=== PATIENT | male | born 1945 | race Caucasian/White ===

== ENCOUNTER 2017-11-26 14:21 | Emergency (ER) | payer OTHER ==
[~2017-11-26] VITALS: Ht 177.8 cm; Wt 92.4 kg
[2017-11-26 14:22] VITALS: BP 170/82; PULSE 88; RESP 18; TEMP 97.9; O2SAT 98
[2017-11-26] MEDS ORDERED: bp meds (14:55)
[2017-11-26] MEDS ORDERED: ASPI-516 CHEW (14:55)
[2017-11-26] MEDS ORDERED: OMEP20TA93 PO (14:55)
--- NOTE | 2017-11-26 16:08 | PD ---
HPI Chief Complaint: Laceration/Skin Injury Time Seen by Provider: 15:33 Travel History International Travel<30 days: No Contact w/Intl Traveler<30days: No Traveled to known affect area: No History of Present Illness HPI This is a 72-year-old male here with a superficial laceration to right wrist volar aspect caused by a razor knife. Bleeding is well-controlled. He has normal sensation and full range of motion of the wrist and hand. Symptom severity is mild. No aggravating or alleviating factors. PFSH Past Medical History Diminished Hearing: No GERD: Yes Hypertension: Yes Tetanus Vaccination: Unknown Influenza Vaccination: Yes ?: Not Past Surgical History Genitourinary Surgery: Yes (bladder cancer) Neurologic Surgery: Yes (right shoulder, left elbow, right elbow) Social History Alcohol Use: No Tobacco Use: No Allergies-Medications (Allergen,Severity, Reaction): Coded Allergies: No Known Allergies (Verified Allergy, Unknown, 11/26/17) Reported Meds & Prescriptions Reported Meds & Active Scripts Active Reported Aspirin 81 Mg Chew 81 Mg CHEW DAILY Omeprazole 20 Mg Tab 20 Mg PO DAILY [bp meds] Review of Systems Except as stated in HPI: all other systems reviewed are Neg General / Constitutional: No: Fever Eyes: No: Visual changes HENT: No: Headaches Cardiovascular: No: Chest Pain or Discomfort Respiratory: No: Shortness of Breath Gastrointestinal: No: Abdominal Pain Genitourinary: No: Dysuria Physical Exam Narrative GENERAL: Alert well-appearing 9-year-old male SKIN: Warm and dry. 1.5 centimeters superficial laceration to the right wrist volar aspect. HEAD: Normocephalic. EYES: No injection or drainage. NECK: Supple MUSCULOSKELETAL: No cyanosis, or edema. Right upper extremity: Superficial 1.5 cm laceration to the right wrist volar aspect. No vascular or tendon injury. no active bleeding. Can flex and extend the wrist and all fingers. Normal 2 point discrimination. Equal and palpable radial pulses. Normal coloration. Brisk cap refill Data Data Last Documented VS Vital Signs Date Time Temp Pulse Resp B/P (MAP) Pulse Ox O2 Delivery O2 Flow Rate FiO2 11/26/17 14:22 97.9 88 18 170/82 (111) 98 MDM Medical Decision Making Medical Screen Exam Complete: Yes Emergency Medical Condition: Yes Differential Diagnosis Laceration, tendon injury, neurovascular injury Narrative Course 9-year-old male here with superficial laceration to the right wrist volar aspect. Extremities neurovascularly intact. No vascular or tendon injury visualized for suspected. No active bleeding. Laceration repair performed. Patient tolerated procedure well. Procedures Procedure Narrative LACERATION LOCATION: Right wrist LENGTH: 1.5 cm NUMBER OF STITCHES/MIGDALIA: 3 REPAIR: The area of the laceration was prepped with Betadine and sterilely draped. The laceration was infiltrated with [1% lidocaine with epi]. The wound was copiously irrigated and explored without evidence of foreign body, tendon injury or neurovascular injury. The wound was closed using 4-0 proline. This was a single layer repair. A sterile dressing was applied. The patient was advised to keep the dressing clean and dry. Patient tolerated the procedure well. Diagnosis Primary Impression: Wrist laceration Qualified Codes: S61.511A - Laceration without foreign body of right wrist, initial encounter Referrals: Primary Care Physician Additional Instructions: Do not submerge the wound in water. Edges need to be removed in 7 days. Return if you have signs or symptoms of infection Disposition: 01 DISCHARGE HOME Condition: Stable Kelly Carrion Nov 26, 2017 16:08
[2017-11-26] MEDS ORDERED: TETANUS/DIPHTHERIA TOXOID ADULT 0.5 ML VIAL IM ONE (16:15)
== END 2017-11-26 16:31 | disposition home or self-care (01) ==
LOC: PHEFT 14:21
DX: S61.511A Laceration without foreign body of right wrist, initial encounter (principal); I10 Essential (primary) hypertension; K21.9 Gastro-esophageal reflux disease without esophagitis; Z23 Encounter for immunization; W26.0XXA Contact with knife, initial encounter
CPT/HCPCS: 12001; 90471; 90714